=== PATIENT | female | born 1995 | race Caucasian/White ===

== ENCOUNTER 2017-01-23 02:47 | Emergency (ER) | payer OTHER ==
[~2017-01-23] VITALS: Ht 160 cm; Wt 61.2 kg
[2017-01-23] MEDS ORDERED: CYCLOBENZAPRINE HCL 10 MG TABLET PO ONE (04:00)
[2017-01-23] MEDS ORDERED: OXYCODONE/APAP 5-325 MG TABLET PO ONE (04:00)
[2017-01-23] MEDS ORDERED: IBUPROFEN 600 MG TABLET PO ONE (04:00)
--- NOTE | 2017-01-23 04:05 | NUR ---
MSE COMPLETED, LEFT INDEX FINGER ABRASION AND RT WRIST ABRASION CLEANED WITH PERROXIDE THEN BAND AGED PLACED, PT REC'D MEDS MD ORDERED. PT THEN D/C'D HOME, ACI/RX X2 AND COPY OF TESTS RESULTS GIVEN. PT AMBULATED W/O DIFF/TOOK ALL BELONGINGS AND AMBULATED WITH FIANCE/MOM WHOM ARE TO DRIVE.
[2017-01-23 04:08] VITALS: BP 112/68
[2017-01-23] MEDS ORDERED: CYCLOBENZAPRINE HCL 10 MG TABLET ONE (04:08)
[2017-01-23] MEDS ORDERED: IBUPROFEN 600 MG TABLET ONE (04:09)
== END 2017-01-23 04:09 | disposition home or self-care (01) ==
LOC: ER 02:48
DX: S16.1XXA Strain of muscle, fascia and tendon at neck level, initial encounter (principal); S50.811A Abrasion of right forearm, initial encounter; V89.2XXA Person injured in unspecified motor-vehicle accident, traffic, initial encounter; W22.10XA Striking against or struck by unspecified automobile airbag, initial encounter; Y93.89 Activity, other specified; Y99.8 Other external cause status; Y92.89 Other specified places as the place of occurrence of the external cause
CPT/HCPCS: 72125; 99284; A4663